=== PATIENT | female | born 1990 | race Asian ===

== ENCOUNTER → 2022-10-17 | Day surgery (SDC) | payer BC ==
[~2022-10-17] MED LIST: BIRTH CONTROL PILL PO; EXCEDRIN MIGRA1 EAC3 PO; LACTATED RINGER'S 1,000 ML ONE; LIDOCAINE HCL 2% LOCAL INJ 5 ML SDV VIAL INJ ONE; MIDAZOLAM HCL 2 MG/2 ML VIAL ONE; POVIDONE IODINE 0.05% 0.05 % ML PO ONE; PROPOFOL IV EMULSION 10 MG/ML 20 ML VIAL ONE
[2022-10-17 15:40] VITALS: BP 118/74; PULSE 78; RESP 18; O2SAT 98
== END | disposition home or self-care (01) ==
LOC: OR 11:44
PROVIDERS: ATTEND Internal Medicine Gastroenterology
DX: K29.70 Gastritis, unspecified, without bleeding (principal); K29.80 Duodenitis without bleeding; K44.9 Diaphragmatic hernia without obstruction or gangrene; K59.00 Constipation, unspecified; D64.9 Anemia, unspecified; G43.909 Migraine, unspecified, not intractable, without status migrainosus; Z79.82 Long term (current) use of aspirin
CPT/HCPCS: 43239; 81025; J2001; J2250; J2704; J7121